=== PATIENT | female | born 1990 | race Caucasian/White ===

== ENCOUNTER 2021-06-13 18:34 | Emergency (ER) | payer OTHER ==
[~2021-06-13] VITALS: Ht 162.6 cm; Wt 63.5 kg
--- NOTE | 2021-06-13 19:00 | NUR ---
Patient arrive at the ER with c/o vaginal bleeding. 6 weeks gestation.
--- NOTE | 2021-06-13 19:04 | NUR ---
Dr. Kennedy on bedside for MSE.
[2021-06-13 19:25] LABS: HEMATOCRIT 40.8 % (31.2-41.9); MEAN CORPUSCULAR HEMOGLOBIN 31.1 uug (24.7-32.8); MEAN CORPUSCULAR VOLUME 88.6 fL (75.5-95.3); PLATELET COUNT (AUTO) 199 K/uL (179-408)
--- NOTE | 2021-06-13 19:29 | NUR ---
Dr Kennedy did pelvic exam with this nurse at bedside.
[2021-06-13 19:30] LABS: CARBON DIOXIDE 25 mmol/L (21-32); CHLORIDE 103 mmol/L (98-107); CREATININE 0.5 mg/dL (0.6-1.3); GLUCOSE 80 mg/dL (74-106); POTASSIUM 3.5 mmol/L (3.5-5.1); UREA NITROGEN, BLOOD 11 mg/dL (7-18)
[2021-06-13 19:34] LABS: *BILIRUBIN,URIN NEGATIVE (NEGATIVE); *BLOOD, URINE 2+ (NEGATIVE); *COLOR,URINE YELLOW (YELLOW); *KETONES,URINE NEGATIVE (NEGATIVE); *UROBILINOGEN,URINE 0.2 E.U./dl (NORMAL); LEUKOCYTE ESTERASE ,URINE TRACE (NEGATIVE); NITRITE, URINE NEGATIVE (NEGATIVE); PH,URINE 6.5 (5.0-8.0); UGLUCOSE NEGATIVE (NEGATIVE)
[2021-06-13 19:36] LABS: ALANINE AMINOTRANSFERASE 37 U/L (14-59); ALKALINE PHOSPHATASE 68 U/L (50-136); ASPARTATE AMINOTRANSFERASE 28 U/L (15-37); BILIRUBIN,DIRECT 0.1 mg/dL (0.0-0.2); BILIRUBIN,TOTAL 0.4 mg/dL (0.2-1.0); TOTAL PROTEIN, SERUM 7.6 g/dL (6.4-8.2)
--- NOTE | 2021-06-13 19:43 | NUR ---
Received call from blood bank. patient is O+. not candidate for rhogam.
[2021-06-13 19:46] LABS: *CLARITY,URINE HAZY (CLEAR)
[2021-06-13 19:47] LABS: BACTERIA,URINE FEW /HPF (NONE SEEN); SQUAMOUS EPITHELIAL CELL,UR MODERATE /HPF (NONE SEEN)
[2021-06-13 22:40] VITALS: BP 129/69
--- NOTE | 2021-06-13 22:40 | NUR ---
Patient discharged to home in stable condition. Written and verbal after care instructions given. Patient verbalizes understanding of instructions. Stressed follow up or return to ER for worsening s/s. All belongings lizette patient.
== END 2021-06-13 22:41 | disposition home or self-care (01) ==
LOC: ER 18:38
DX: O20.0 Threatened abortion (principal); Z3A.01 Less than 8 weeks gestation of pregnancy; O30.001 Twin pregnancy, unspecified number of placenta and unspecified number of amniotic sacs, first trimester; O31.8X Other complications specific to multiple gestation
CPT/HCPCS: 36415; 76856; 85025; 85730; 86850; 86900; 86901; 87086; A4663

== ENCOUNTER 2021-09-09 17:49 | Emergency (ER) | payer OTHER ==
[~2021-09-09] VITALS: Ht 162.6 cm; Wt 63.5 kg
[2021-09-09 18:22] LABS: *BILIRUBIN,URIN NEGATIVE (NEGATIVE); *BLOOD, URINE 1+ (NEGATIVE); *CLARITY,URINE CLEAR (CLEAR); *COLOR,URINE YELLOW (YELLOW); *KETONES,URINE NEGATIVE (NEGATIVE); *UROBILINOGEN,URINE 0.2 E.U./dl (NORMAL); LEUKOCYTE ESTERASE ,URINE NEGATIVE (NEGATIVE); NITRITE, URINE NEGATIVE (NEGATIVE); UGLUCOSE NEGATIVE (NEGATIVE)
[2021-09-09 18:41] LABS: HEMATOCRIT 40.5 % (31.2-41.9); MEAN CORPUSCULAR HEMOGLOBIN 30.6 uug (24.7-32.8); MEAN CORPUSCULAR VOLUME 89.2 fL (75.5-95.3); PLATELET COUNT (AUTO) 231 K/uL (179-408)
[2021-09-09 18:42] LABS: BACTERIA,URINE NONE SEEN /HPF (NONE SEEN); RBC,URINE 0-3 /HPF (0-3); SQUAMOUS EPITHELIAL CELL,UR NONE SEEN /HPF (NONE SEEN); WBC,URINE NONE SEEN /HPF (0-3)
[2021-09-09 18:49] LABS: CREATININE 0.7 mg/dL (0.6-1.3); POTASSIUM 3.5 mmol/L (3.5-5.1)
--- NOTE | 2021-09-09 19:02 | NUR ---
RECEIVED REPORT FROM PIYUSH. PT NOTED TO BE IN BED, LORAINE ANY PAIN/DISCOMFORT AT THIS TIME. AT BEDSIDE.
--- NOTE | 2021-09-09 19:50 | NUR ---
Patient discharged to home in stable condition. Written and verbal after care instructions given. Patient verbalizes understanding of instructions. Stressed follow up or return to ER for worsening s/s. Steady gait, no n/d. Denies any [place]/dizzyness. Accompanied by .
[2021-09-09 19:51] VITALS: BP 122/70
== END 2021-09-09 19:51 | disposition home or self-care (01) ==
LOC: ER 17:49
DX: O20.0 Threatened abortion (principal)
CPT/HCPCS: 36415; 85025; 86850; 86900; 86901; A4663

== ENCOUNTER 2021-09-19 21:00 | Emergency (ER) | payer OTHER ==
[~2021-09-19] VITALS: Ht 170.2 cm; Wt 68.2 kg
--- NOTE | 2021-09-19 21:35 | NUR ---
pt ambulated to room 2a, Patient c/o abd pain after a miscarriage.
[2021-09-19] MEDS ORDERED: IV NORMAL SALINE 1000 ML BAG IV ONE (22:15)
[2021-09-19] MEDS ORDERED: HYDROMORPHONE 1 MG/1 ML DISP.SYRIN IV ONE (22:15)
[2021-09-19] MEDS ORDERED: ONDANSETRON 4 MG/2 ML VIAL IV ONE (22:15)
[2021-09-19] MEDS ORDERED: METHYLERGONOVINE MALEATE 0.2 MG/ML AMP IV ONE (22:15)
[2021-09-19 22:29] LABS: HEMATOCRIT 40.8 % (31.2-41.9); MEAN CORPUSCULAR VOLUME 89.5 fL (75.5-95.3); PLATELET COUNT (AUTO) 215 K/uL (179-408)
[2021-09-19 22:36] LABS: CARBON DIOXIDE 27 mmol/L (21-32); CHLORIDE 103 mmol/L (98-107); CREATININE 0.5 mg/dL (0.6-1.3); GLUCOSE 91 mg/dL (74-106); POTASSIUM 3.7 mmol/L (3.5-5.1); UREA NITROGEN, BLOOD 9 mg/dL (7-18)
[2021-09-19] MEDS ORDERED: HYDROMORPHONE 1 MG/1 ML DISP.SYRIN ONE (23:02)
[2021-09-19] MEDS ORDERED: ONDANSETRON 4 MG/2 ML VIAL ONE (23:02)
[2021-09-19] MEDS ORDERED: METHYLERGONOVINE MALEATE 0.2 MG/ML AMP ONE (23:03)
--- NOTE | 2021-09-19 23:13 | NUR ---
ultrasound at bedside.
--- NOTE | 2021-09-20 00:22 | NUR ---
call to Dr. Siddiqi 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 Dr. Farrell is speaking with this doctor.
[2021-09-20] MEDS ORDERED: OXYC-128 PO (01:32)
[2021-09-20] MEDS ORDERED: MISO200T PO (01:32)
--- NOTE | 2021-09-20 01:58 | NUR ---
Patient discharged to home in stable condition. Written and verbal after care instructions given. Patient verbalizes understanding of instructions. Stressed follow up or return to ER for worsening s/s. pt ambulated without assist, denies pain.
[2021-09-20 01:59] VITALS: BP 110/60
== END 2021-09-20 02:00 | disposition home or self-care (01) ==
LOC: ER 21:03
DX: O03.4 Incomplete spontaneous abortion without complication (principal); Q51.3 Bicornate uterus
CPT/HCPCS: 36415; 76856; 80048; 84702; 85025; 96361 ×2; 96374; 96375; 99284; J1170; J2210; J2405; A4663; J7030